=== PATIENT | male | born 1950 | race Caucasian/White ===

== ENCOUNTER 2019-04-24 15:59 | Emergency (ER) | payer OTHER, SELFPAY ==
[2019-04-24 16:08] VITALS: BP 141/80; PULSE 85; RESP 20; TEMP 36.6; O2SAT 100
[2019-04-24 16:39] VITALS: PULSE 70
[2019-04-24] MEDS: IBUPROFEN 400 MG TABLET 800 MG PO (16:42)
[2019-04-24] MEDS: predniSONE 20 MG TABLET 40 MG PO (17:37)
[2019-04-24 17:43] VITALS: BP 147/87; PULSE 77; RESP 18; O2SAT 98
--- NOTE | 2019-04-25 00:14 | ED.EXTPRO ---
HPI - Extremity Problem <NITA NatarajanP - Last Filed: 04/25/19 00:31> General Chief complaint: Extremity Problem,Nontraumatic Stated complaint: Left arm/shoulder numb Time Seen by Provider: 04/24/19 16:13 Source: patient Mode of arrival: Ambulatory Limitations: no limitations History of Present Illness HPI Narrative: This is a pleasant 68-year-old gentleman, nonsmoker, who presents with spouse with chief complain of reproducible left mid scapular pain which radiates down to left elbow and to wrist for last 5 days. Patient reports he had a fall on right outstretched hand on a [place] stair[place] after he slipped and lost balance. He is not sure if this is related to his left side arm pain that he is currently having. Patient reports slight tingling and numbness around the left elbow vision but denies weakness on affected arm. Patient reports compression and immobilization helps with the pain. He has been taking Percogesic 1 tab Q4 hrs but this has not been effective for pain. Related Data Previous Rx's Medication Instructions Recorded prednisone 40 mg PO DAILY 4 Days #4 tab 04/24/19 Allergies Allergy/AdvReac Type Severity Reaction Status Date / Time No Known Drug Allergies Allergy Verified 04/24/19 16:33 Review of Systems <NITA NatarajanP - Last Filed: 04/25/19 00:31> Review of Systems Narrative: General: Denies fever, chills, fatigue, malaise, sweats. HEENT: Denies sinus pain, ear pain, sore throat, difficulty swallowing, dizziness. Respiratory: Denies dyspnea, cough, wheezing, hemoptysis, sputum. Cardiovascular: Denies chest pain, palpitations, orthopnea, edema. Gastrointestinal: Denies nausea, vomiting, abdominal pain, diarrhea, constipation, melena. : Denies dysuria, frequency, incontinence, hematuria, urinary retention. Musculoskeletal: Reports reproducible left side shoulder pain radiating down to wrist with tingling and numbness. Skin: Denies rash, skin lesions, or other. Neurologic: Denies weakness, headache, numbness, change in speech, confusion, seizures, incoordination. Psychiatric: No concerning psychosocial issues. 12-point review of systems is negative except for those stated above. Patient History <NITA NatarajanP - Last Filed: 04/25/19 00:31> Social History Smoking Status: Never smoker Substance Use Type: does not use Exam <JASS Natarajan - Last Filed: 04/25/19 00:31> Narrative Exam Narrative: General appearance: well developed, well nourished, in no acute distress. Head: normocephalic, atraumatic, no scalp lesions, non-tender. Eye: pupil equal, round. EOMI. Nose: nares patent. Oral: mucosa moist. Neck/Thyroid: neck supple, full range of motion, no visible masses. Skin: no suspicious rashes, lesions over visible areas. Warm and dry. Heart: no clubbing, no cyanosis, no edema. Lungs: Breathing even and unlabored. No stridor. No accessory muscles used. Chest: normal shape and expansion. Abdomen: non-obese, non-distended. Neurologic: alert and oriented. 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 Psych: good eye contact, normal affect. Initial Vital Signs Initial Vital Signs: Vital Signs Temperature 97.9 F 04/24/19 16:08 Pulse Rate 85 04/24/19 16:08 Respiratory Rate 20 04/24/19 16:08 Blood Pressure 141/80 H 04/24/19 16:08 Pulse Oximetry 100 04/24/19 16:08 Extrem Right upper extremity: normal to inspection and full ROM Left upper extremity: normal to inspection, full ROM, normal capillary refill, shoulder/upper arm Details: inspection abnormal, tenderness Location: of the scapula (mid regioin) and normal ROM; no swelling, axillary nerve sensory function abnormal, no abrasions, no lacerations and no unsual warmth, elbow/forearm Details: normal to inspection and hand Details: normal to inspection, 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) Details: wrist extension normal, neurosensory exam abnormal (elbow and ulnar region), tendon exam normal, vascular exam Details: radial pulse present and normal capillary refill and normal ROM of fingers Right lower extremity: normal to inspection and full ROM Left lower extremity: normal to inspection and full ROM <Megan Guerra MD - Last Filed: 04/25/19 07:54> Initial Vital Signs Initial Vital Signs: Vital Signs Temperature 97.9 F 04/24/19 16:08 Pulse Rate 85 04/24/19 16:08 Respiratory Rate 20 04/24/19 16:08 Blood Pressure 141/80 H 04/24/19 16:08 Pulse Oximetry 100 04/24/19 16:08 Course <JASS Natarajan - Last Filed: 04/25/19 00:31> Orders Ordered: Discontinued Medications Ibuprofen (Advil) 800 mg PO NOW ONE Stop: 04/24/19 16:33 Last Admin: 04/24/19 16:42 Dose: 800 mg Documented by: ABDI Prednisone (Deltasone) 40 mg PO NOW ONE Stop: 04/24/19 17:10 Last Admin: 04/24/19 17:37 Dose: 40 mg Documented by: ABDI Vital Signs Vital signs: Vital Signs - 8 hr 04/24/19 16:39 04/24/19 17:43 Pulse Rate 77 Pulse Rate [Left Radial] 70 Respiratory Rate 18 Blood Pressure [Left Arm] 147/87 H Pulse Oximetry 98 <Megan Guerra MD - Last Filed: 04/25/19 07:54> Orders Ordered: Discontinued Medications Ibuprofen (Advil) 800 mg PO NOW ONE Stop: 04/24/19 16:33 Last Admin: 04/24/19 16:42 Dose: 800 mg Documented by: ABDI Prednisone (Deltasone) 40 mg PO NOW ONE Stop: 04/24/19 17:10 Last Admin: 04/24/19 17:37 Dose: 40 mg Documented by: ABDI Vital Signs Vital signs: Vital Signs - 8 hr 04/24/19 16:39 04/24/19 17:43 Pulse Rate 77 Pulse Rate [Left Radial] 70 Respiratory Rate 18 Blood Pressure [Left Arm] 147/87 H Pulse Oximetry 98 MDM - Extremity (Nontraumatic) <JASS Natarajan - Last Filed: 04/25/19 00:31> Differential Diagnosis Differential diagnosis: Likely other (radiculopathy, ulnar nerve tendonitis, strain of posterior shoulder) Medical Records Attestation: I reviewed the patient's medical records. [facility] Narrative Medical decision making narrative: This is 68-year-old gentleman came in to ED with reproducible left posterior scapula pain with palpation which radiates down to his left ulna aspect of arm and to his wrist. Patient had injury to right hand about a week ago s/p [place] after slipped on a beach stairs. The patient reports paresthesia on left ulna aspect of elbow region but bilateral upper extremity strength is equal. Patient was medicated with prednisone 40 mg while in ED and had provided prescription for 4 additional days and possible medication side effect was informed. Patient has an appointment with his PCP on Monday to follow up. Patient advised to take [id number] Tylenol and or Motrin as needed and appropriate dosage was informed. X-ray test was deferred at this time due to no known trauma or injury to her left posterior shoulder or neck. Patient and spouse agrees with treatment plan and verbalized understanding. No further questions were expressed at this time. Discharge Plan Departure Patient Disposition: Home Clinical Impression: Radiculopathy affecting upper extremity Discharge Date/Time: 04/24/19 17:45 Instructions: DI for Cervical Radiculopathy Activity Restrictions/Additional Instructions: You have been diagnosed with [radiculopathy from cervical/upper thoracic on L side ]. What to do: *Take your medications as directed. Please take prednisone daily for next 4 days. This medication may cause elevated blood sugar, difficulty with sleeping and stomach irritation. Please take it with food. You also can take Tylenol up to 4000 mg over 24 hour. You can take extra-strength Tylenol 2 tabs every 6 hours as needed for pain. You can add ibuprofen 400 mg 3 times a day with food as needed for pain. *Follow up with your primary care provider in 2-3 days, call for an appointment. Let them know you were seen in the ED and that we asked you to be seen in follow up. *Return to ED if you have any new, worsening, or concerning symptoms, such as [worsening pain, weakness on left arm, fever, rash, chest pain, breathing difficulty, or any acute concerns]. Prescriptions: New prednisone 20 mg tablet 40 mg PO DAILY 4 Days Qty: 4 RF: 0
== END 2019-04-24 17:45 | disposition home or self-care (01) ==
PROVIDERS: Emergency Provider Nurse Practitioner Family
DX: M54.10 Radiculopathy, site unspecified (principal); R20.0 Anesthesia of skin; W19.XXXA Unspecified fall, initial encounter
CPT/HCPCS: 93005; 99282; 99283

== ENCOUNTER → 2021-08-16 13:23 | Outpatient (CLI) | payer OTHER, SELFPAY ==
[2021-08-16 14:44] LABS: COVID19 -Nasal RAPID Negative (Negative)
== END ==
PROVIDERS: Visit Provider Family Medicine Sleep Medicine
DX: Z20.822 Contact with and (suspected) exposure to COVID-19 (principal)
CPT/HCPCS: 87635; C9803

== ENCOUNTER → 2021-11-08 14:56 | Outpatient (CLI) | payer OTHER, SELFPAY ==
--- NOTE | 2021-11-08 14:58 | DI.RAD.S_ITS ---
PROCEDURE: XR FINGER RT MIN 2V INDICATIONS: finger injury TECHNIQUE: AP hand, 2 views of the middle finger(s) acquired. COMPARISON: None. FINDINGS: Bones: No fractures or dislocations. No suspicious bony lesions. Soft tissues: No suspicious soft tissue calcifications. IMPRESSION: Normal right hand and right middle finger Dictated by: Aaron Navarro M.D. on 11/08/2021 at 15:54 Approved by: Aaron Navarro M.D. on 11/08/2021 at 15:56
== END ==
PROVIDERS: PCP Internal Medicine; Referring Provider Nurse Practitioner Family; Visit Provider Nurse Practitioner Family
DX: S69.91XA Unspecified injury of right wrist, hand and finger(s), initial encounter (principal); X58.XXXA Exposure to other specified factors, initial encounter
CPT/HCPCS: 73140

== ENCOUNTER → 2023-12-12 09:14 | Outpatient (CLI) | payer OTHER, SELFPAY ==
--- NOTE | 2023-12-12 09:15 | DI.RAD.S_ITS ---
PROCEDURE: XR CHEST 2V INDICATIONS: Productive cough, fevers, CLL/emphysema TECHNIQUE: 2 views of the chest were acquired. COMPARISON: None. FINDINGS: Surgical changes and devices: None. Lungs and pleura: Patchy opacities in the lung bases most pronounced in the left lung base/lingula of left upper lobe. No pleural effusions or pneumothorax. Mediastinum: Mediastinal contours are normal. Heart size is normal. Bones and chest wall: No suspicious bony abnormalities. Soft tissues appear unremarkable. IMPRESSION: Bibasilar atelectasis or pneumonia. Dictated by: Regina Theodore MD, PhD on 12/12/2023 at 9:28 Approved by: Regina Theodore MD, PhD on 12/12/2023 at 9:29
== END ==
PROVIDERS: PCP Internal Medicine; Referring Provider Student in an Organized Health Care Education/Training Program; Visit Provider Student in an Organized Health Care Education/Training Program
DX: R05.8 Other specified cough (principal)
CPT/HCPCS: 0241U; 71046

== ENCOUNTER 2024-10-28 16:57 | Emergency (ER) | payer OTHER, SELFPAY ==
[2024-10-28] VITALS (14 sets, daily range): BP systolic 127–143; BP diastolic 64–88; PULSE 59–65; RESP 16–18; TEMP 36.6; O2SAT 98–100; BMI 28.7
--- NOTE | 2024-10-28 17:14 | DI.CT.S_ITS ---
PROCEDURE: CT LE LT W CON INDICATIONS: fall TECHNIQUE: After the administration of intravenous contrast, 3 mm axial sections acquired of the left lower extremity from the knee to the foot, with coronal and sagittal reformats. For radiation dose reduction, the following was used: automated exposure control, adjustment of mA and/or kV according to patient size. COMPARISON: None. FINDINGS: Image quality: Excellent. Bones: No acute fracture or dislocation. No osseous erosions. Joints: No significant knee joint or tibiotalar joint effusions. Moderate prepatellar bursal fluid (66). Muscles: Overall muscle bulk is preserved. No intramuscular emphysema. Tendons: The quadriceps and patellar tendon contours are preserved. The Achilles tendon contour is preserved. The visualized flexor and extensor tendon contours at the level of the ankle and foot are within normal limits. 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 Poor opacification of the triple runoff vessels to the level of the ankle. Non opacification of the dorsalis pedis artery distal to the ankle. Lymph nodes: No popliteal lymphadenopathy. Other soft tissues: Perifascial fluid tracking down the posterior calf (). Subcutaneous edema throughout the calf and foot. IMPRESSION: 1. No acute fracture or dislocation. 2. Moderate prepatellar bursitis versus hematoma. Please note that superimposed infection is a possibility. 3. 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 4. Perifascial fluid and subcutaneous edema, which can be seen with cellulitis, lymphedema, or venous congestion. These findings were communicated via telephone to the ordering provider, Henrique BRISCOE, by Devendra Matthews MD on 10/28/2024 at 6:10 p.m.. Dictated by: Devendra Matthews M.D. on 10/28/2024 at 18:01 Approved by: Devendra Matthews M.D. on 10/28/2024 at 18:11
--- NOTE | 2024-10-28 17:26 | ED_ITS ---
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 Patient states that he suffered the 1st fall 2 weeks ago, when he felt somewhat lightheaded, striking his knee. Patient has suffered a 2nd mechanical fall 3 days later, striking the same left leg and knee. Patient states that since then, his leg has been swollen and painful from about the knee on down to the foot. No numbness, tingling, weakness. Patient went in to the walk-in clinic, he was sent to the ED for further evaluation. Patient denies chest pain. Patient states that he has been somewhat short of breath at baseline since his bypass surgery, which has not changed since the falls. Related Data Home Medications Medication Instructions Recorded Confirmed atorvastatin 80 mg tablet 80 mg PO DAILY 11/08/21 10/28/24 clopidogrel 75 mg tablet 75 mg PO DAILY 11/08/21 10/28/24 isosorbide mononitrate 30 mg 60 mg PO DAILY 11/08/21 10/28/24 tablet,extended release 24 hr losartan 50 mg tablet 50 mg PO DAILY 11/08/21 10/28/24 metoprolol tartrate 25 mg tablet 25 mg PO BID 11/08/21 10/28/24 nitroglycerin 0.4 mg sublingual 0.4 mg sublingual Q5M PRN chest 11/08/21 10/28/24 tablet (Nitrostat) pain, angina bupropion HCl 150 mg 24 hr tablet, 150 mg PO BID 10/28/24 10/28/24 extended release furosemide 40 mg tablet 40 mg PO DAILY 10/28/24 10/28/24 metformin 500 mg tablet 1,000 mg PO BID 10/28/24 10/28/24 pantoprazole 40 mg tablet,delayed 40 mg PO DAILY 10/28/24 10/28/24 release pantoprazole 40 mg tablet,delayed 40 mg PO DAILY 10/28/24 10/28/24 release potassium chloride 20 mEq 20 meq PO DAILY 10/28/24 10/28/24 tablet,extended release(part/cryst) Previous Rx's Medication Instructions Recorded doxycycline hyclate 100 mg capsule 100 mg PO BID 7 days #14 caps 10/28/24 Allergies Allergy/AdvReac Type Severity Reaction Status Date / Time No Known Drug Allergies Allergy Verified 10/28/24 16:35 Review of Systems <Henrique Corona PA-C - Last Filed: 10/28/24 18:57> Constitutional Constitutional: Denies chills, Denies fatigue, Denies fever(s), Denies frequent falls, Denies lethargy and Denies weakness Eyes Eyes: Denies change in vision, Denies eye discharge, Denies irritation and Denies loss of vision ENT Ears, Nose, Mouth, and Throat: Denies change in voice, Denies dizziness, Denies neck pain, Denies sore throat and Denies throat swelling Cardiovascular Cardiovascular: Denies chest pain, Denies irregular heart rhythm, Denies lightheadedness, Denies palpitations, Denies dyspnea, Denies dyspnea on exertion and Denies orthopnea Respiratory Respiratory: Denies cough, Denies dyspnea, Denies dyspnea on exertion and Denies wheezing Gastrointestinal Gastrointestinal: Denies abdominal pain, Denies change in bowel habits, Denies diarrhea, Denies nausea and Denies vomiting Musculoskeletal Musculoskeletal: Denies neck pain and Denies numbness Comments: Left lower leg swelling from the knee on down, pain Integumentary/Breasts Skin/Breast: Denies pruritus, Denies erythema, Denies rash and Denies wounds Neurologic Neurologic: Denies behavioral changes, Denies confusion, Denies dizziness, Denies frequent falls, Denies loss of vision, Denies numbness and Denies weakness Psychiatric Psychiatric: Denies anxiety, Denies behavioral changes, Denies confusion, Denies depression, Denies homicidal ideation and Denies suicidal ideation Endocrine Endocrine: Denies fatigue, Denies flushing and Denies palpitations Hematologic/Lymphatic Hematologic/Lymphatic: Denies easy bruising Allergic/Immunologic Allergic/Immunologic: Denies urticaria, Denies throat swelling and Denies wheezing Patient History <Henrique Corona PA-C - Last Filed: 10/28/24 18:57> Social History Smoking Status: Former smoker Smoking Status: Former smoker Exam <NOAH Albarran Last Filed: 10/28/24 18:57> Narrative Exam Narrative: Const General:?cooperative, healthy appearing and comfortable [facility] Head:?normal to inspection Ears:?hearing grossly normal bilaterally Nose:?external nose normal Face and sinus:?normal facial exam and sinuses nontender Mouth:?oral mucosae normal Throat:?posterior oropharynx normal Eyes General:?appearance normal, both eyes and all related structures Neck Neck:?normal visual inspection and no lymphadenopathy noted Resp Effort & Inspection:?normal respiratory effort Auscultation:?clear to auscultation bilaterally Cardio Rate:?regular rate Rhythm:?regular rhythm Musculoskeletal Left leg is swollen from the knee on down to the foot. The knee area feels boggy to palpation. There is some dependent bruising on the toes. There is mild tenderness to palpation. Patient is able to bear weight and walk, although somewhat painful. Strength and sensation is intact. Pedal Pulses intact. Neurovascularly intact. Neuro General:?patient alert, patient awake and patient oriented x3 Initial Vital Signs Initial Vital Signs: Vital Signs Temperature 97.9 F 10/28/24 17:03 Pulse Rate 65 10/28/24 17:03 Respiratory Rate 18 10/28/24 17:03 Blood Pressure 134/73 10/28/24 17:03 Pulse Oximetry 99 10/28/24 17:03 Oxygen Delivery Method Room Air 10/28/24 17:03 <Garcia Esquivel DO - Last Filed: 10/28/24 20:35> Initial Vital Signs Initial Vital Signs: Vital Signs Temperature 97.9 F 10/28/24 17:03 Pulse Rate 65 10/28/24 17:03 Respiratory Rate 18 10/28/24 17:03 Blood Pressure 134/73 10/28/24 17:03 Pulse Oximetry 99 10/28/24 17:03 Oxygen Delivery Method Room Air 10/28/24 17:03 Course <Henrique Corona PA-C - Last Filed: 10/28/24 18:57> Orders Ordered: ED Orders 10/28/24 17:14 CT LE LT w con Stat 10/28/24 17:25 CBC Auto Diff [Complete Blood Count AUTO DIFF] Stat CMP [Comprehensive Metabolic Panel] Stat PT [Prothrombin Time INR] Stat PTT [PTT Partial Thromboplastin Yvon] Stat Vancomycin HCl/Dextrose (Vancomycin) 2,000 mg in 400 mls @ 200 mls/hr IV NOW ONE Stop: 10/28/24 22:23 Discontinued Medications Ceftriaxone Sodium 1,000 mg/ (Sodium Chloride) 100 mls @ 200 mls/hr IV NOW ONE Stop: 10/28/24 20:26 Vital Signs Vital signs: Vital Signs - 8 hr 10/28/24 17:03 10/28/24 19:25 10/28/24 19:25 Temperature 97.9 F Pulse Rate 65 60 Respiratory Rate 18 18 Blood Pressure 134/73 134/81 Pulse Oximetry 99 99 Oxygen Delivery Method Room Air <Garcia Esquivel DO - Last Filed: 10/28/24 20:35> Orders Ordered: ED Orders 10/28/24 17:14 CT LE LT w con Stat 10/28/24 17:25 CBC Auto Diff [Complete Blood Count AUTO DIFF] Stat CMP [Comprehensive Metabolic Panel] Stat PT [Prothrombin Time INR] Stat PTT [PTT Partial Thromboplastin Yvon] Stat Vancomycin HCl/Dextrose (Vancomycin) 2,000 mg in 400 mls @ 200 mls/hr IV NOW ONE Stop: 10/28/24 22:23 Discontinued Medications Ceftriaxone Sodium 1,000 mg/ (Sodium Chloride) 100 mls @ 200 mls/hr IV NOW ONE Stop: 10/28/24 20:26 Vital Signs Vital signs: Vital Signs - 8 hr 10/28/24 17:03 10/28/24 19:25 10/28/24 19:25 Temperature 97.9 F Pulse Rate 65 60 Respiratory Rate 18 18 Blood Pressure 134/73 134/81 Pulse Oximetry 99 99 Oxygen Delivery Method Room Air MDM - Extremity Injury (Lower) <Henrique Corona PA-C - Last Filed: 10/28/24 18:57> Lab Data 10/28/24 17:25 10/28/24 17:25 Labs: Lab Results 10/28/24 Range/Units 17:25 WBC 14.7 H (4.5-11.0) X10^3/uL RBC 3.30 L (4.5-5.9) X10^6/uL Hgb 10.8 L (13.5-17.5) g/dL Hct 32.5 L (41-53) % MCV 98.5 (80-100) fL MCH 32.7 (26-34) PG MCHC 33.2 (30-36) % RDW 16.0 H (11.6-14.8) % Plt Count 210 (150-400) X10^3/uL Neut % (Auto) Not Reportable Lymph % (Auto) Not Reportable [place] % (Auto) Not Reportable Eos % (Auto) Not Reportable Baso % (Auto) Not Reportable Lymph # (Auto) Not Reportable [place] # (Auto) Not Reportable Baso # (Auto) Not Reportable Total Counted 100 Seg Neutrophils % 35.0 L (38-70) % Band Neutrophils % 1.0 L (3-7) % Lymphocytes % (Manual) 59.0 H (25-45) % Monocytes % (Manual) 2.0 (2-11) % Eosinophils % (Manual) 2.0 (2-4) % Basophils % (Manual) 1.0 (0-1) % Neutrophils # (Manual) 5292 (0933-7913) /uL RBC Morphology Normal morphology PT 11.8 (9.4-12.5) SECONDS INR 1.0 (0.9-1.3) APTT 32 (25.1-36.5) SECONDS Sodium 137 (137-145) mmol/L Potassium 4.5 (3.4-5.1) mmol/L Chloride 102 (98-107) mmol/L Carbon Dioxide 27 (22-32) mmol/L BUN 25 H (9-20) mg/dL Creatinine 1.26 H (0.66-1.25) mg/dL Estimated GFR > 60 (>60) mL/min BUN/Creatinine Ratio 19.8 (6-22) Glucose 85 (80-110) mg/dL Calcium 9.6 (8.4-10.2) mg/dL Total Bilirubin 0.6 (0.2-1.3) mg/dL AST 28 (17-59) IU/L ALT 33 (<50) IU/L Alkaline Phosphatase 77 (38-126) U/L Total Protein 6.9 (6.3-8.2) g/dL Albumin 4.3 (3.5-5.0) g/dL Globulin 2.6 (1.7-4.1) g/dL Albumin/Globulin Ratio 1.7 (1.0-2.8) MDM Narrative Medical decision making narrative: 74-year-old male who is status post a 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 Labs and CT scan were obtained. Labs are significant for a elevated white count of 14.7, creatinine 1.26. All other labs within normal limits. Lower extremity CT shows: 1. No acute fracture or dislocation. 2. Moderate prepatellar bursitis versus hematoma. Please note that superimposed infection is a possibility. 3. 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 4. Perifascial fluid and subcutaneous edema, which can be seen with cellulitis, lymphedema, or venous congestion. Care of patient has been transferred to Dr. Garcia Esquivel at this time. Medical records reviewed: Yes <Garcia Esquivel DO - Last Filed: 10/28/24 20:35> Lab Data Labs: Lab Results 10/28/24 Range/Units 17:25 WBC 14.7 H (4.5-11.0) X10^3/uL RBC 3.30 L (4.5-5.9) X10^6/uL Hgb 10.8 L (13.5-17.5) g/dL Hct 32.5 L (41-53) % MCV 98.5 (80-100) fL MCH 32.7 (26-34) PG MCHC 33.2 (30-36) % RDW 16.0 H (11.6-14.8) % Plt Count 210 (150-400) X10^3/uL Neut % (Auto) Not Reportable Lymph % (Auto) Not Reportable [place] % (Auto) Not Reportable Eos % (Auto) Not Reportable Baso % (Auto) Not Reportable Lymph # (Auto) Not Reportable [place] # (Auto) Not Reportable Baso # (Auto) Not Reportable Total Counted 100 Seg Neutrophils % 35.0 L (38-70) % Band Neutrophils % 1.0 L (3-7) % Lymphocytes % (Manual) 59.0 H (25-45) % Monocytes % (Manual) 2.0 (2-11) % Eosinophils % (Manual) 2.0 (2-4) % Basophils % (Manual) 1.0 (0-1) % Neutrophils # (Manual) 5292 (1393-1445) /uL RBC Morphology Normal morphology PT 11.8 (9.4-12.5) SECONDS INR 1.0 (0.9-1.3) APTT 32 (25.1-36.5) SECONDS Sodium 137 (137-145) mmol/L Potassium 4.5 (3.4-5.1) mmol/L Chloride 102 (98-107) mmol/L Carbon Dioxide 27 (22-32) mmol/L BUN 25 H (9-20) mg/dL Creatinine 1.26 H (0.66-1.25) mg/dL Estimated GFR > 60 (>60) mL/min BUN/Creatinine Ratio 19.8 (6-22) Glucose 85 (80-110) mg/dL Calcium 9.6 (8.4-10.2) mg/dL Total Bilirubin 0.6 (0.2-1.3) mg/dL AST 28 (17-59) IU/L ALT 33 (<50) IU/L Alkaline Phosphatase 77 (38-126) U/L Total Protein 6.9 (6.3-8.2) g/dL Albumin 4.3 (3.5-5.0) g/dL Globulin 2.6 (1.7-4.1) g/dL Albumin/Globulin Ratio 1.7 (1.0-2.8) Imaging Data CT lower extremity : Radiologist's Impression: [place] [address] CT Scan Report Signed Patient: Emil Almaguer MR#: [id number] : 1950 Acct:[id number] Age/Sex: 74 / M Date of Service: 10/28/24 Loc: ED Accession Number: [id number] Procedure: CT LE LT w con Ordering Provider: Henrique Corona PA-C PROCEDURE: CT LE LT W CON INDICATIONS: fall TECHNIQUE: After the administration of intravenous contrast, 3 mm axial sections acquired of the left lower extremity from the knee to the foot, with coronal and sagittal reformats. For radiation dose reduction, the following was used: automated exposure control, adjustment of mA and/or kV according to patient size. COMPARISON: None. FINDINGS: Image quality: Excellent. Bones: No acute fracture or dislocation. No osseous erosions. Joints: No significant knee joint or tibiotalar joint effusions. Moderate prepatellar bursal fluid (5/66). Muscles: Overall muscle bulk is preserved. No intramuscular emphysema. Tendons: The quadriceps and patellar tendon contours are preserved. The Achilles tendon contour is preserved. The visualized flexor and extensor tendon contours at the level of the ankle and foot are within normal limits. 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 Poor opacification of the triple runoff vessels to the level of the ankle. Non opacification of the dorsalis pedis artery distal to the ankle. Lymph nodes: No popliteal lymphadenopathy. Other soft tissues: Perifascial fluid tracking down the posterior calf (). Subcutaneous edema throughout the calf and foot. IMPRESSION: 1. No acute fracture or dislocation. 2. Moderate prepatellar bursitis versus hematoma. Please note that superimposed infection is a possibility. 3. 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 4. Perifascial fluid and subcutaneous edema, which can be seen with cellulitis, lymphedema, or venous congestion. 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 Labs and CT scan were obtained. Labs are significant for a elevated white count of 14.7, creatinine 1.26. All other labs within normal limits. Lower extremity CT shows: 1. No acute fracture or dislocation. 2. Moderate prepatellar bursitis versus hematoma. Please note that superimposed infection is a possibility. 3. 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 4. Perifascial fluid and subcutaneous edema, which can be seen with cellulitis, lymphedema, or venous congestion. Care of patient has been transferred to Dr. Garcia Esquivel at this time. Medical records reviewed: Yes 1927: Discussed case with vascular surgeon Dr. Sanchez at [facility], states reviewed the images states that the occlusion is more chronic and with distal reconstitution there is no acute interventions, states this is more likely hematoma versus cellulitis given the read. No indication for transfer at this time. 2015: Patient was re-evaluated, informed of the vascular surgeons in recommendations, understands and agrees that transfers indicated. On exam patient with out micro motion tenderness to the knee joint, fluctuant pretibial bursa, but no actual tenderness to palpation, discussed risks benefits for performing aspiration of the bursa, patient would like to defer, given patient with CLL unsure if leukocytosis is secondary to his chronic condition and or lower extremity cellulitis given CT scan showing possible perifascial fluid, however patient without any signs or symptoms of compartment syndrome. Patient will be given dose of IV antibiotics here, will be sent home with compression dressing of the left lower extremity instructed follow up with the primary care and orthopedic surgery in outpatient setting he will also be sent home with antibiotics for cellulitis. Patient understands and agrees with this plan he was given strict return precautions he verbalized understanding of this and agrees to being discharged home with outpatient follow up Discharge Plan Departure Patient Disposition: Home Clinical Impression: Bursitis, prepatellar, Cellulitis Activity Restrictions/Additional Instructions: Please follow up with primary care and orthopedic surgery in outpatient setting Please read the discharge instructions sheet carefully and bring all papers to all doctor follow-up visits, as it may contain information that your doctor may want to see. Disease processes change and evolve, if your symptoms worsen or if you develop any new symptoms that are concerning to you please return for evaluation. Your evaluation today does not show any evidence of any life- threatening/serious illnesses requiring admission to the hospital or surgery. Please follow-up with your doctor for re-evaluation in approximately 1 day. Seek immediate medical attention for any worrisome symptoms. *If you do not have a primary care provider please contact the [facility] Resource line at [phone]. They will ask some questions about your medical history and help get you set up with a doctor in the community. Prescriptions: New doxycycline hyclate 100 mg capsule 100 mg PO BID 7 Days Qty: 14 0RF No Action isosorbide mononitrate 30 mg tablet extended release 24 hr 60 mg PO DAILY metoprolol tartrate 25 mg tablet 25 mg PO BID losartan 50 mg tablet 50 mg PO DAILY atorvastatin 80 mg tablet 80 mg PO DAILY clopidogrel 75 mg tablet 75 mg PO DAILY nitroglycerin [Nitrostat] 0.4 mg tablet, sublingual 0.4 mg sublingual Q5M PRN (Reason: chest pain, angina) Rx Instructions: do not exceed 3 doses per episode metformin 500 mg tablet 1,000 mg PO BID pantoprazole 40 mg tablet,delayed release (DR/EC) 40 mg PO DAILY bupropion HCl 150 mg tablet extended release 24 hr 150 mg PO BID potassium chloride 20 mEq tablet,ER particles/crystals 20 meq PO DAILY furosemide 40 mg tablet 40 mg PO DAILY pantoprazole 40 mg tablet,delayed release (DR/EC) 40 mg PO DAILY Referrals: Garcia Barnett MD [Primary Care Provider] - Alec Rebolledo MD [Physician] - Stand Alone Forms: Patient Portal/API/Survey
--- NOTE | 2024-10-28 17:37 | PC.NURSE ---
Pt brought to room by WC. Pt has swelling to left knee. PA in room with pt.
[2024-10-28 17:44] LABS: Add Manual Diff / Slide Review YES; Hematocrit 32.5 % (41-53); Hemoglobin 10.8 g/dL (13.5-17.5); Mean Corpuscular HGB Conc 33.2 % (30-36); Mean Corpuscular Hemoglobin 32.7 PG (26-34); Mean Corpuscular Volume 98.5 fL (80-100); Platelet Count 210 X10^3/uL (150-400); White Blood Cell Count 14.7 X10^3/uL (4.5-11.0)
[2024-10-28 17:46] LABS: Prothrombin Time 11.8 SECONDS (9.4-12.5)
[2024-10-28 17:49] LABS: PTT Partial Thromboplastin Tim 32 SECONDS (25.1-36.5)
[2024-10-28 17:50] LABS: Alanine Aminotransferase 33 IU/L (<50); Albumin 4.3 g/dL (3.5-5.0); Albumin Globulin Ratio 1.7 (1.0-2.8); Alkaline Phosphatase 77 U/L (38-126); Aspartate Aminotransferase 28 IU/L (17-59); BUN Creatinine Ratio 19.8 (6-22); Bilirubin Total 0.6 mg/dL (0.2-1.3); Blood Urea Nitrogen 25 mg/dL (9-20); Calcium 9.6 mg/dL (8.4-10.2); Carbon Dioxide 27 mmol/L (22-32); Chloride 102 mmol/L (98-107); Estimated Glomerular Filt Rate > 60 mL/min (>60); Globulin 2.6 g/dL (1.7-4.1); Glucose 85 mg/dL (80-110); HEMOLYSIS < 15 (0-50); Potassium 4.5 mmol/L (3.4-5.1); Sodium 137 mmol/L (137-145); Total Protein 6.9 g/dL (6.3-8.2)
[2024-10-28 18:00] LABS: Neutrophils Absolute Manual 5292 /uL (3000-5900); Total Cells Counted 100
[2024-10-28 18:08] LABS: RBC Morphology Normal Morphology
[2024-10-28] MEDS: VANCOMYCIN 2,000 MG/400 ML PIGGYBACK 200 MG IV (20:50)
[2024-10-28] MEDS: cefTRIAXone 1,000 MG in SODIUM CHLORIDE 0.9% 100 ML 200 MG IV (20:50)
== END 2024-10-28 23:41 | disposition home or self-care (01) ==
PROVIDERS: Student in an Organized Health Care Education/Training Program; Emergency Provider Student in an Organized Health Care Education/Training Program; PCP Internal Medicine
DX: M70.42 Prepatellar bursitis, left knee (principal); L03.116 Cellulitis of left lower limb; W18.30XA Fall on same level, unspecified, initial encounter
CPT/HCPCS: 36415; 73701; 80053; 85007; 85025; 85610; 85730; 96365; 96366; 96367; 99284; J0696; Q9967